=== PATIENT | male | born 1985 | race Two or more races ===

== ENCOUNTER 2023-07-25 09:50 | Emergency (ER) | payer BC ==
[~2023-07-25] VITALS: Ht 172.7 cm; Wt 145.1 kg
[2023-07-25] MEDS ORDERED: ATORVASTATIN CA10 MG PO (10:03)
== END 2023-07-25 11:16 | disposition home or self-care (01) ==
LOC: ER 09:50
DX: L55.1 Sunburn of second degree (principal)